=== PATIENT | female | born 1945 | race Caucasian/White ===

== ENCOUNTER 2019-05-28 11:37 | Emergency (ER) | payer SELFPAY ==
--- NOTE | 2019-05-28 11:54 | ED ---
GI/ HPI - HPI Summary HPI Summary: The patient is a 73 y/o F presenting to [facility] accompanied by son with a chief complaint of UTI symptoms onset last night. She reports burning with urination, increased urgency and frequency with decreased output, itchiness, and chills. She denies any nausea, fevers, or flank pain. Currently, her symptoms are rated 3/10 in severity. She has had urine infections previously. PMHx: HLD, tonsillectomy. Nonsmoker, rare EtOH, no substance use. Medications reviewed. Allergies noted. - History of Current Complaint Chief Complaint: EDUrogenitalProblems Time Seen by Provider: 05/28/19 11:45 Stated Complaint: POSSIBLE UTI Hx Obtained From: Patient Onset/Duration: Started Hours Ago - last night, Still Present Timing: Constant Severity: Moderate Current Severity: Moderate Pain Intensity: 3 Pain Characteristics: Burning, Itching Associated Signs and Symptoms: Positive: Dysuria, Chills, UTI Symptoms, Other: - increased urinary frequency and urgency, decreased urinary output. Negative: Nausea, Fever, Flank Pain Aggravating Factor(s): Voiding Alleviating Factor(s): Nothing - Allergy/Home Medications Allergies/Adverse Reactions: Allergies Allergy/AdvReac Type Severity Reaction Status Date / Time Penicillins Allergy Hives Verified 05/28/19 11:42 PMH/Surg Hx/FS Hx/Imm Hx Endocrine/Hematology History: Denies: Hx Diabetes Cardiovascular History: Reports: Hx Hypercholesterolemia Denies: Hx Hypertension Respiratory History: Denies: Hx Chronic Obstructive Pulmonary Disease (COPD) - Surgical History Surgical History: Yes Surgery Procedure, Year, and Place: tonsillectomy Infectious Disease History: No Infectious Disease History: Denies: Traveled Outside the [place] in Last 30 Days - Family History Known Family History: Negative: Hypertension, Diabetes - Social History Alcohol Use: Rare Hx Substance Use: No Substance Use Type: Reports: None Hx Tobacco Use: No Smoking Status (MU): Never Smoked Tobacco Review of Systems Positive: Chills. Negative: Fever Negative: Nausea Positive: burning, dysuria, frequency, urgency, other - decreased output, itchiness. Negative: flank pain All Other Systems Reviewed And Are Negative: Yes Physical Exam - Summary Physical Exam Summary: Constitutional: Well-developed, Well-nourished, Alert. (-) Distressed Skin: Warm, Dry HENT: Normocephalic; Atraumatic Eyes: Conjunctiva normal Neck: Musculoskeletal ROM normal neck. (-) JVD, (-) Stridor, (-) Tracheal deviation Cardio: Rhythm regular, rate normal, Heart sounds normal; Intact distal pulses; Radial pulses are 2+ and symmetric. (-) Murmur Pulmonary/Chest wall: Effort normal. (-) Respiratory distress, (-) Wheezes, (-) Rales Abd: Soft, (-) tenderness, (-) Distension, (-) Guarding, (-) Rebound Musculoskeletal: (-) Edema Back: (-) CVA tenderness Lymph: (-) Cervical adenopathy Neuro: Alert, Oriented x3 Psych: Mood and affect Normal Triage Information Reviewed: Yes Vital Signs On Initial Exam: Initial Vitals Temp Pulse Resp BP Pulse Ox 97.7 F 60 19 110/72 98 05/28/19 11:38 05/28/19 11:38 05/28/19 11:38 05/28/19 11:38 05/28/19 11:38 Vital Signs Reviewed: Yes Procedures - Sedation Patient Received Moderate/Deep Sedation with Procedure: No Diagnostics - Vital Signs Vital Signs Temp Pulse Resp BP Pulse Ox 05/28/19 11:38 97.7 F 60 19 110/72 98 - Laboratory Lab Statement: Any lab studies that have been ordered have been reviewed, and results considered in the medical decision making process. Re-Evaluation - Re-Evaluation First Eval Re-Evaluation Time: 13:00 Comment: We discussed results and plan for discharge. GIGU Course/Dx - Course Course Of Treatment: Patient is here with a UTI. Patient has no evidence of pyelonephritis on physical exam or history. Patient had a UA which showed UTI. Patient was started on Bactrim. Patient was given medicine to be dispensed for home as pharmacies are closed today. Patient had the rest of her prescription sent to the pharmacy. - Diagnoses Provider Diagnoses: UTI (urinary tract infection) Discharge ED - Sign-Out/Discharge Documenting (check all that apply): Patient Departure - Patient will be discharged home. - Discharge Plan Condition: Stable Disposition: HOME Prescriptions: Sulfamethox/Trimethoprim DS* [Bactrim DS 800/160 TAB*] 1 tab PO BID #7 tab Patient Education Materials: Urinary Tract Infection in Women (DC), Urinary Tract Infection in Older Adults (ED) Referrals: [facility] [Outside] - 3 Days Additional Instructions: Take antibiotics as prescribed. Come back to the emergency department if you experience a fever, coming, pain in sides, or any other concerning symptoms. Make sure the antibiotic prescription you fill is from Dr. Cosme and not your primary care provider. Follow up with your primary care provider in 1-3 days. - Billing Disposition and Condition Condition: STABLE Disposition: Home - Attestation Statements Document Initiated by Valeriano: Yes Documenting Scribe: Leidy Gipson Provider For Whom Valeriano is Documenting (Include Credential): Dr. Nima Cosme MD Scribe Attestation: Leidy Dhaliwal, scribed for Dr. Nima Cosme MD on 05/28/19 at 1538. Scribe Documentation Reviewed: Yes Provider Attestation: The documentation as recorded by the Leidy young accurately reflects the service I personally performed and the decisions made by me, Dr. Nima Cosme MD Status of Scribe Document: Viewed
[2019-05-28] MEDS ORDERED: Sulfamethox/Trimethoprim DS 800/160* TAB PO SCH (12:00)
[2019-05-28 12:45] LABS: Urine Appearance Cloudy; Urine Bilirubin Negative (Negative); Urine Blood 3+ (Negative); Urine Color Yellow; Urine Glucose Negative (Negative); Urine Ketones Trace (Negative); Urine Nitrite Negative (Negative); Urine Protein 1+(30 mg/dL) (Negative); Urine Specific Gravity 1.018 (1.010-1.030); Urine Urobilinogen Negative (Negative)
[2019-05-28] MEDS ORDERED: Sulfamethox/Trimethoprim DS 800/160* TAB PO ONE (12:48)
[2019-05-28 12:53] LABS: Urine Bacteria 1+ (Absent); Urine Red Blood Cell 3+(>10/hpf) (Absent); Urine White Blood Cell 3+(>20/hpf) (Absent)
[2019-05-28 13:17] VITALS: BP 114/67
== END 2019-05-28 13:14 | disposition home or self-care (01) ==
LOC: ED 11:37
DX: N39.0 Urinary tract infection, site not specified (principal); E78.00 Pure hypercholesterolemia, unspecified; Z88.0 Allergy status to penicillin
CPT/HCPCS: 81003; 81015; 87086; 99282; A9270-GY